=== PATIENT | female | born 1955 | race Caucasian/White ===

== ENCOUNTER 2017-07-22 10:14 | Emergency (ER) | payer OTHER ==
[~2017-07-22] VITALS: Ht 165.1 cm; Wt 100.0 kg
[2017-07-22 10:19] VITALS: BP 174/84; PULSE 88; RESP 16; TEMP 98.5; O2SAT 96
[2017-07-22 10:59] VITALS: O2SAT 100
[2017-07-22] MEDS ORDERED: SODIUM CHLOR 0.9% 1000 ML INJ 1,000 ML IV ONE (11:06)
[2017-07-22] MEDS ORDERED: HYDROmorphone HCL PF 1 MG/ML VIAL IVS ONE (11:15)
[2017-07-22] MEDS ORDERED: ACETAMINOPHEN 325 MG TAB PO ONE (11:15)
[2017-07-22] MEDS ORDERED: diphenhydrAMINE HCL 50 MG/ML VIAL IVP ONE (11:15)
[2017-07-22] MEDS ORDERED: PROCHLORPERAZINE INJ 10 MG/2 ML VIAL IVP ONE (11:15)
[2017-07-22] MEDS ORDERED: SODIUM CHLORIDE 0.9% FLUSH 10 ML FLUSH IVF PRN (11:15)
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
[2017-07-22] MEDS ORDERED: LISI10TA3 PO (11:43)
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
[2017-07-22] MEDS ORDERED: HYDR-3533 PO (12:26)
== END 2017-07-22 13:11 | disposition home or self-care (01) ==
LOC: NEPD 10:14
DX: S16.1XXA Strain of muscle, fascia and tendon at neck level, initial encounter (principal); R51 Headache; V89.0XXA Person injured in unspecified motor-vehicle accident, nontraffic, initial encounter
CPT/HCPCS: 70450; 72125; 96361; 96374; 96375; 99285; J0780; J1170; J1200; J7030